=== PATIENT | female | born 1960 | race Caucasian/White ===

== ENCOUNTER 2019-01-28 13:00 | Outpatient (RCR) | payer OTHER, MEDICARE, SELFPAY ==
--- NOTE | 2019-01-13 13:29 | HP.PTEVAL ---
Patient's Visit Information MAURI FAITH is a 58 year old F referred to Physical Therapy by DESTINEY WING with a diagnosis of LUMBAR FUSION 10/20/18. Date of Evaluation: 01/13/19 Physical Therapist: Felicita Esparza PT, Cert MDT - Visit Plan Frequency: 2-3x /Week Duration: 4-6 Weeks Plan: AQUATIC THERAPY FOR PAIN RELEIF, POSTURE CORRECTION/STRENGTHENING, INSTRUCTION IN APPROPRIATE BODY MECHANICS AND ACTIVITY MODIFICATIONS. DLS STARTING WITH A NEUTRAL SPINE PROGRESSING ROM TOLERATED. EVELIO LE ROM, STRETCHING AND STRENGTHENING. HEP INSTRUCTION. - Subjective Findings: Work/Leisure: UNEMPLOYEED. Disability: YES - 10 YEARS AGO WHEN HAD FIRST BACK SURGERY. Present symptoms: LOW BACK PAIN. PATIENT DENIES EVELIO LE PAIN, NUMBNESS OR TINGLING CURRENTLY BUT HAD IT BEFORE THIS SURGERY. Present since: EARLY . Pain Scale: WORST 10/10, LEAST 3/10. Currently: 3/10. Commenced as a result of: REPETATIVE LABOR. Symptoms at onset: LOW BACK. Worse: PROLONGED SITTING, TRYING TO BEND, TOO MUCH BENDING, STANDING TOO LONG. Better: FREQUENT CHANGE OF POSITIONG, HEAT, ICE, PAIN PILLS. Disturbed sleep: NO. Previous history/Previous treatment: FIRST BACK SURGERY WAS IN 2009, SECOND BACK SURGERY WAS SEP 29 2018 AND THIRD WAS OCT 21 2018. PATIENT REPORTS THE TWO TOP SCREWS CAME OUT AFTER SURGERY SEP 29 THEREFORE EMERGENCY SURGERY Sep. ALL SURGERIES BY DR. DESTINEY WING. HISTORY OF CHIROPRACTOR A LONG TIME AGO. PHYSICAL THERAPY - AQUATIC THERAPY HERE AT [facility]. INJECTIONS BY DR. WING WITH MOST RECENT BEING IN ABOUT JUN 2018. Coughing/sneezing/straining: POSITIVE. Gait: PATIENT REPORTS THAT CURRENTLY HER WALKING IS A LOT BETTER THAN IT USE TO BE. SHE REPORTS IT IS SMOOTHER BUT DISTANCE AND PACE LIMITED. INCREASED PAIN WITH DOING A 1/2 MILE WALK ABOUT 2 WEEKS AGO. Difficulty initiating urinatin: NO. Accidents: NO. Unexplained weight loss: NO. Imaging: X-RAYS OF BACK ABOUT 2 WEEKS AGO - BURKE WAS PLEASED PER PATIENT REPORT. PMH: EVELIO THR'S. HAS HAD REVISION ON LEFT HIP 2016. LEFT SHOULDER SURGERY. HTN. 3RD STAGE RENAL FAILURE. OSTEOPOROSIS. 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 OTHER: PATIENT REPORTS SHE HAS BEEN A LITTLE MORE SORE LATELY SINCE TWO DAYS AGO WHEN SHE DIDN'T HAVE HER BACK BRACE ON AND SAT DOWN TOO FAST IN HER CAR. PATIENT ALSO REPORTS INCREASED PAIN TODAY FROM OVER-DOING IT AT HOME THIS MORNING, RUNNING SOME ERRANDS AND RUSHING AROUND. PATIENT ALSO REPORTS INCREASED BACK PAIN SINCE SHE WAS RELEASED TO START BENDING. - Objective Sitting/Standing Posture: POOR. Lordosis: REDUCED. Lateral shift: NO. Relevant shift: N/A. Active Correction of posture: BETTER. Other Observations: INDEP GAIT INTO PT WITH INCREASED TRUNK FLEXION AND DECREASED CADANCE. NO ASSISTIVE DEVICES OR LOB. Motor deficit: EVELIO HIPS 3+ TO 4-/5, EVELIO KNEES 4-/5, EVELIO ANKLES 5/5. Sensory deficit: EVELIO LE LIGHT TOUCH SENSATION APPEARS INTACT AND SYMMETRICAL. ROM deficit: TIGHT EVELIO HIP FLEXORS AND HAMSTRINGS. Reflexes: 2/3 EVELIO LE'S. Dural Signs: NEGATIVE EVELIO LE'S. Lumbar mvmt loss: flex - OLGA. ext - OLGA. R SG - OLGA. L SG - OLGA. THIS PT PROCEEDED VERY CAREFULLY WITH ALL TESTING. Core strength: POOR. Palpation: PATIENT IS TENDER WITH LIGHT PALPATION OF ENTIRE LUMBAR REGION. MILD TENDERNESS WITH PALPATION OF EVELIO GREATER TROCH REGIONS. NO BUTTOCK PAIN. EVELIO LUMBAR PARASPINALS ARE ALSO TENDER. SHE IS NOT TENDER IN THE THORACIC REGION. OTHER: INCISION LOOKS GOOD WITHOUT ANY OPEN AREAS OR SIGNS OF INFECTION. - Goals Goal 1:: DECREASE C/O LOW BACK AND EVELIO HIP PAIN. Goal Time Frame: 4-6 Weeks Goal 2:: IMPROVE LIFTING, WALKING, STANDING, TRAVEL AND HOMEMAKING FUNCTION Goal Time Frame: 4-6 Weeks Goal 3:: INSTRUCT IN PROPHYLAXIS Goal Time Frame: 4-6 Weeks - Rehabilitation Potential Rehabilitation Potential: Fair - Anticipated Interventions Patient/Client Instruction: Educate patient on: Condition, Plan of Care, Risk Factors, Benefits of Fitness Program For the Purpose of:: To improve self management Therapeutic Exercise to Include: Strength training, Body mechanics, Postural training, Flexibilty training, In an aquatic setting, Active ROM, Dynamic Lumbar Stabilization, Scapular Strength/Stabilization For the Purpose of:: To decrease pain, To decrease swelling/inflammation, To increase ROM, To improve muscle performance and motor function, To increase tolerance to activity/condition/position, To improve ability of physical actions for home/community/work/leisure, To improve gait and locomotor functions Thank you for the opportunity to evaluate your patient. For Medicare and Medicare HMO plans, please review the plan of care and approve it. It will need to be FAXED BACK to us at [phone] for Medicare purposes. For Medicare only, by signing this I certify the plan of care. Please let me know if there are questions or concerns regarding this plan of care. Physician Signature: Date:
--- NOTE | 2019-01-31 17:25 | HP.PT.NRP ---
HP - Discharge Summary (1) - Patient Information MAURI FAITH was seen in my office for initial evaluation on 01/13/19. The following Plan of Care was established for this patient: Initial Frequency: 2-3x /Week Initial Duration: 4-6 Weeks - Anticipated Interventions Patient/Client Instruction: Educate patient on: Condition, Plan of Care, Risk Factors, Benefits of Fitness Program For the Purpose of:: To improve self management Therapeutic Exercise to Include: Strength training, Body mechanics, Postural training, Flexibilty training, In an aquatic setting, Active ROM, Dynamic Lumbar Stabilization, Scapular Strength/Stabilization For the Purpose of:: To decrease pain, To decrease swelling/inflammation, To increase ROM, To improve muscle performance and motor function, To increase tolerance to activity/condition/position, To improve ability of physical actions for home/community/work/leisure, To improve gait and locomotor functions This patient was last seen in our office 01/28/19. Pertinent comments regarding their Physical therapy will appear below: PATIENT CALLED AND CANCELLED ALL CURRENT PT MIKAELA'TS DUE TO DISLOCATING HIP AT HOME CAUSING FALL AND FX'D WRIST. WE WOULD BE HAPPY TO RESUME PT WHEN APPROPRIATE. At this point I will be discontinuing this patient from physical therapy. I would be happy to see this patient again in the future if found appropriate by the physician. Thank you! Felicita Esparza, PT, Cert MDT
== END 2019-01-28 17:00 | disposition home or self-care (01) ==
LOC: PT 13:00
DX: M43.26 Fusion of spine, lumbar region (principal)
CPT/HCPCS: 97113; 97530

== ENCOUNTER 2019-10-04 08:30 | Outpatient (RCR) | payer OTHER, MEDICARE, SELFPAY ==
--- NOTE | 2019-06-06 11:58 | HP.PTEVAL_ITS ---
Patient's Visit Information MAURI FAITH is a 59 year old F referred to Physical Therapy by Schuyler Gifford MD with a diagnosis of L TKE s/p April 26, 2019. Date of Evaluation: 06/06/19 Physical Therapist: HOLLAND Vaughn - Visit Plan Frequency: 3x /Week Duration: 2 Months Plan: 3X/ week for 8 weeks for L knee AROM, stretching ( including foam rolling to the calf and the HS area), strengtheing, stairs, gait training, sit to stand transfers with HEP and modalities as needed. - Subjective Findings: L TKR on April 26. When she was in the hospital she kept telling them that her ankle was bothering her. She had a really bad sprained ankle and not sure how that happened. Her CPM machine was a week late getting to her. SHe was behind on therapy. Generally her whole L leg is swollen down the ankle. She walks the long driveway and does her exercises at home. She started driving but it is hard to get in the car because her L leg is hard to bend. SHe keeps her leg elevated. Her leg is so still in the morning. She reports that bending she is at 90 degrees and lacking 6 degrees. She has 1 step but has a ramp now. She has been using the straight cane for a little over 2 weeks now. She saw her surgeon a week ago and goes back to the surgeon on the . Her ankle is not broken. No blood clots. She has a lot of pain in her leg still. - Pain L knee pain Pain Intensity (Out of 10): 8 - Objective Gait: Walks with decrease stance time on the L leg and walks with a bent knee and decreased heel to toe gait pattern. L knee extension -11 degrees from full extension and 90 degrees flexion. Sit to stand: pt needs UE strength to stand up and likes to kick that L leg out instead of bringing it back. Pt is able to step up onto 6 inch step using B UE's with decrease ROM, increase hip hike. She is able to step down using // bars with increase use of UE to help take the pressure off bending the knee. Pt is able to SLR on the L but with extensor lag and increase weakness in the L hip. Nu-step L1 ( started at seat #9 for 3 min and then seat #8 for 2 min and then seat #7 for - Goals Goal 1:: I HEP Goal Time Frame: 4-6 Weeks Goal 2:: Increase L knee AROM -6 degrees from full extension to 110 degrees L knee flexion Goal Time Frame: 6-8 Weeks Goal 3:: Walk with normal gait pattern without AD Goal Time Frame: 6-8 Weeks Goal 4:: Be able to go up and down the stairs recip with 1 hand rail without antalgic gait Goal Time Frame: 6-8 Weeks Goal 5:: Be able to sit to stand with ease with L foot back and no UE support Goal Time Frame: 6-8 Weeks - Rehabilitation Potential Rehabilitation Potential: Good - Anticipated Interventions Patient/Client Instruction: Educate patient on: Plan of Care For the Purpose of:: To decrease pain, To decrease swelling/inflammation, To increase ROM, To improve nutrient delivery to tissue, To improve muscle performance and motor function, To improve ability to perform ADL's, To increase tolerance to activity/condition/position, To improve performance and independence with ADL's, To improve ability of physical actions for home/community/work/leisure, To improve gait and locomotor functions, To improve health of tissue, To decrease soft tissue restriction, To increase flexibility/ROM, To improve endurance, To improve balance, To improve safety with gait Therapeutic Exercise to Include: Strength training, Balance training, Flexibilty training, Gait and locomotor training, Passive ROM, Active ROM For the Purpose of:: To decrease pain, To decrease swelling/inflammation, To increase ROM, To improve nutrient delivery to tissue, To improve muscle performance and motor function, To improve ability to perform ADL's, To increase tolerance to activity/condition/position, To improve performance and independence with ADL's, To improve ability of physical actions for home/community/work/leisure, To improve gait and locomotor functions, To improve health of tissue, To decrease soft tissue restriction, To increase flexibility/ROM, To improve balance Functional Training to Include: Gait training For the Purpose of:: To improve gait and locomotor functions Manual Therapy Techniques to Include: Mobilization, Passive ROM, Soft tissue mobilization For the Purpose of:: To decrease pain, To increase ROM, To improve nutrient delivery to tissue, To improve muscle performance and motor function Cryotherapy (ice pack, ice massage): Yes Thermo therapy (hot pack): Yes For the Purpose of:: To decrease pain Thank you for the opportunity to evaluate your patient. For Medicare and Medicare HMO plans, please review the plan of care and approve it. It will need to be FAXED BACK to us at [phone] for Medicare purposes. For Medicare only, by signing this I certify the plan of care. Please let me know if there are questions or concerns regarding this plan of care. Physician Signature: Date:
--- NOTE | 2019-07-01 08:46 | HP.PTREVAL ---
Schuyler Gifford MD, It has been my pleasure to treat MAURI AFITH over the last 10 visits for L TKE s/p April 26, 2019. Please see the progress note below for an update on the physical therapy plan of care! Subjective: Pt reports that the Dr is giving her 4 more weeks and then manipulation. Objective/Function: L knee AROM: -9 degrees from full extension and 96 degrees knee flexion. Gait: still walks with a cane with decrease stance time on the L. Plan Plan: 3X/ week for 8 weeks for L knee AROM, stretching ( including foam rolling to the calf and the HS area), strengtheing, stairs, gait training, sit to stand transfers with HEP and modalities as needed. Goals Goal 1:: I HEP Goal Time Frame: 4-6 Weeks Goal Progress: Goal Met Goal 2:: Increase L knee AROM -6 degrees from full extension to 110 degrees L knee flexion Goal Time Frame: 6-8 Weeks Goal 3:: Walk with normal gait pattern without AD Goal Time Frame: 6-8 Weeks Goal Progress: Progressing Goal 4:: Be able to go up and down the stairs recip with 1 hand rail without antalgic gait Goal Time Frame: 6-8 Weeks Goal Progress: Progressing Goal 5:: Be able to sit to stand with ease with L foot back and no UE support Goal Time Frame: 6-8 Weeks Goal Progress: Progressing Anticipated Interventions Patient/Client Instruction: Educate patient on: Plan of Care For the Purpose of:: To decrease pain, To decrease swelling/inflammation, To increase ROM, To improve nutrient delivery to tissue, To improve muscle performance and motor function, To improve ability to perform ADL's, To increase tolerance to activity/condition/position, To improve performance and independence with ADL's, To improve ability of physical actions for home/community/work/leisure, To improve gait and locomotor functions, To improve health of tissue, To decrease soft tissue restriction, To increase flexibility/ROM, To improve endurance, To improve balance, To improve safety with gait Therapeutic Exercise to Include: Strength training, Balance training, Flexibilty training, Gait and locomotor training, Passive ROM, Active ROM For the Purpose of:: To decrease pain, To decrease swelling/inflammation, To increase ROM, To improve nutrient delivery to tissue, To improve muscle performance and motor function, To improve ability to perform ADL's, To increase tolerance to activity/condition/position, To improve performance and independence with ADL's, To improve ability of physical actions for home/community/work/leisure, To improve gait and locomotor functions, To improve health of tissue, To decrease soft tissue restriction, To increase flexibility/ROM, To improve balance Functional Training to Include: Gait training For the Purpose of:: To improve gait and locomotor functions Manual Therapy Techniques to Include: Mobilization, Passive ROM, Soft tissue mobilization For the Purpose of:: To decrease pain, To increase ROM, To improve nutrient delivery to tissue, To improve muscle performance and motor function Cryotherapy (ice pack, ice massage): Yes Thermo therapy (hot pack): Yes For the Purpose of:: To decrease pain Please do not hesitate to contact me at [phone] by phone or if you have questions or concerns regarding this new plan of care! Sincerely, Melany Damon, MPT
--- NOTE | 2019-07-27 13:05 | HP.PTREVAL ---
Schuyler Gifford MD, It has been my pleasure to treat MAURI FAITH over the last 17 visits for L TKE s/p April 26, 2019. Please see the progress note below for an update on the physical therapy plan of care! Subjective: Dr wants you to call him.... he wants to make sure that we are doing what we are supposed to do.... Pt reports that she was able to go around. Pt says she has been stretching her leg on a step and the squats and then around on her bike at home. Objective/Function: Pt tries hard in PT but ROM just seems to be stuck. Plan Plan: Await Dr phone call back. 3X/ week for 8 weeks for L knee AROM, stretching ( including foam rolling to the calf and the HS area), strengtheing, stairs, gait training, sit to stand transfers with HEP and modalities as needed. Goals Goal 1:: I HEP Goal Time Frame: 4-6 Weeks Goal Progress: Goal Met Goal 2:: Increase L knee AROM -6 degrees from full extension to 110 degrees L knee flexion Goal Time Frame: 6-8 Weeks Goal 3:: Walk with normal gait pattern without AD Goal Time Frame: 6-8 Weeks Goal Progress: Progressing Goal 4:: Be able to go up and down the stairs recip with 1 hand rail without antalgic gait Goal Time Frame: 6-8 Weeks Goal Progress: Progressing Goal 5:: Be able to sit to stand with ease with L foot back and no UE support Goal Time Frame: 6-8 Weeks Goal Progress: Progressing Anticipated Interventions Patient/Client Instruction: Educate patient on: Plan of Care For the Purpose of:: To decrease pain, To decrease swelling/inflammation, To increase ROM, To improve nutrient delivery to tissue, To improve muscle performance and motor function, To improve ability to perform ADL's, To increase tolerance to activity/condition/position, To improve performance and independence with ADL's, To improve ability of physical actions for home/community/work/leisure, To improve gait and locomotor functions, To improve health of tissue, To decrease soft tissue restriction, To increase flexibility/ROM, To improve endurance, To improve balance, To improve safety with gait Therapeutic Exercise to Include: Strength training, Balance training, Flexibilty training, Gait and locomotor training, Passive ROM, Active ROM For the Purpose of:: To decrease pain, To decrease swelling/inflammation, To increase ROM, To improve nutrient delivery to tissue, To improve muscle performance and motor function, To improve ability to perform ADL's, To increase tolerance to activity/condition/position, To improve performance and independence with ADL's, To improve ability of physical actions for home/community/work/leisure, To improve gait and locomotor functions, To improve health of tissue, To decrease soft tissue restriction, To increase flexibility/ROM, To improve balance Functional Training to Include: Gait training For the Purpose of:: To improve gait and locomotor functions Manual Therapy Techniques to Include: Mobilization, Passive ROM, Soft tissue mobilization For the Purpose of:: To decrease pain, To increase ROM, To improve nutrient delivery to tissue, To improve muscle performance and motor function Cryotherapy (ice pack, ice massage): Yes Thermo therapy (hot pack): Yes For the Purpose of:: To decrease pain Please do not hesitate to contact me at [phone] by phone or if you have questions or concerns regarding this new plan of care! Sincerely, Melany Damon, MPT
--- NOTE | 2019-09-27 10:16 | HP.PTREVAL_ITS ---
Schuyler Gifford MD, It has been my pleasure to treat MAURI FAITH over the last 31 visits for L TKE s/p April 26, 2019. Please see the progress note below for an update on the physical therapy plan of care! Subjective: Pt RTD tomm. She was tired by the end of the day on Thursday after walking around shopping for 7 hours. She feels that she has a bowling ball around her knee all the time. Pt is still having trouble getting in and out of her car (has to put her seat way back), she can't squat to get the dog bowls. and just trying to get her knee bent. Objective/Function: AROM L knee -4 degrees from full extension to 105 degrees L knee flexion. sit to stand: Able to do with much difficulty without using UE's. Stairs: up and down recip with 2 hand rails but much hesitancy descneding stairs due to decreased L knee AROM. Gait: walks with decrease stance time on the L LE Plan Plan: 1 additional visit to learn I H&W program with door frame assembler machine then DC to HEP. Goals Goal 1:: I HEP Goal Time Frame: 4-6 Weeks Goal Progress: Goal Met Goal 2:: Increase L knee AROM -6 degrees from full extension to 110 degrees L knee flexion Goal Time Frame: 6-8 Weeks Goal Progress: Progressing Goal 3:: Walk with normal gait pattern without AD Goal Time Frame: 6-8 Weeks Goal Progress: Progressing Goal 4:: Be able to go up and down the stairs recip with 1 hand rail without antalgic gait Goal Time Frame: 6-8 Weeks Goal Progress: Progressing Goal 5:: Be able to sit to stand with ease with L foot back and no UE support Goal Time Frame: 6-8 Weeks Goal Progress: Progressing Anticipated Interventions Patient/Client Instruction: Educate patient on: Plan of Care For the Purpose of:: To decrease pain, To decrease swelling/inflammation, To increase ROM, To improve nutrient delivery to tissue, To improve muscle performance and motor function, To improve ability to perform ADL's, To increase tolerance to activity/condition/position, To improve performance and independence with ADL's, To improve ability of physical actions for home/community/work/leisure, To improve gait and locomotor functions, To improve health of tissue, To decrease soft tissue restriction, To increase flexibility/ROM, To improve endurance, To improve balance, To improve safety with gait Therapeutic Exercise to Include: Strength training, Balance training, Flexibilty training, Gait and locomotor training, Passive ROM, Active ROM For the Purpose of:: To decrease pain, To decrease swelling/inflammation, To increase ROM, To improve nutrient delivery to tissue, To improve muscle performance and motor function, To improve ability to perform ADL's, To increase tolerance to activity/condition/position, To improve performance and independence with ADL's, To improve ability of physical actions for home /community/work/leisure, To improve gait and locomotor functions, To improve health of tissue, To decrease soft tissue restriction, To increase flexibility/ROM, To improve balance Functional Training to Include: Gait training For the Purpose of:: To improve gait and locomotor functions Manual Therapy Techniques to Include: Mobilization, Passive ROM, Soft tissue mobilization For the Purpose of:: To decrease pain, To increase ROM, To improve nutrient delivery to tissue, To improve muscle performance and motor function Cryotherapy (ice pack, ice massage): Yes Thermo therapy (hot pack): Yes For the Purpose of:: To decrease pain Please do not hesitate to contact me at [phone] by phone or if you have questions or concerns regarding this new plan of care! Sincerely, HOLLAND Vaughn
--- NOTE | 2019-10-04 09:29 | HP.PTDCSUM ---
HP - PT D/C Summary It has been my pleasure to treat MAURI FAITH under orders from Schuyler Gifford MD, for the diagnosis of L TKE s/p April 26, 2019 for a total of 32 visit(s). Discharge Date: 10/04/19 Please see the following information for a summary of their discharge status. - Subjective Subjective: Pt reports that her Dr wants to do a scope in April to clear up the scar tissue. She will do H&W until then. - Pain L knee pain Pain Intensity (Out of 10): 3 - Overall Improvement % Improvement: 50 - Objective Objective/Function: Pt has good understanding of H&W program.... Measurements taken from 09-27-19: AROM L knee -4 degrees from full extension to 105 degrees L knee flexion. sit to stand: Able to do with much difficulty without using UE's. Stairs: up and down recip with 2 hand rails but much hesitancy descneding stairs due to decreased L knee AROM. Gait: walks with decrease stance time on the L LE - Goals Goal 1:: I HEP Goal Progress: Goal Met Goal 2:: Increase L knee AROM -6 degrees from full extension to 110 degrees L knee flexion Goal Progress: Progressing Goal 3:: Walk with normal gait pattern without AD Goal Progress: Progressing Goal 4:: Be able to go up and down the stairs recip with 1 hand rail without antalgic gait Goal Progress: Progressing Goal 5:: Be able to sit to stand with ease with L foot back and no UE support Goal Progress: Progressing - Plan Plan: DC PT to H&W program - D/C Information Discharge Comments: DC PT to H&W If there are questions or concerns regarding this patient's physical therapy, please feel free to call me at [phone]. Thank you for the referral of this patient. Sincerely, Melany Damon, MPT
== END 2019-10-04 15:10 | disposition home or self-care (01) ==
LOC: PT 08:30
PROVIDERS: Referring Provider Orthopaedic Surgery; Visit Provider Orthopaedic Surgery
DX: Z47.1 Aftercare following joint replacement surgery (principal)
CPT/HCPCS: 97110; 97113; 97140; 97161

== ENCOUNTER → 2020-05-28 | Outpatient (CLI) | payer OTHER, MEDICARE, SELFPAY | END | disposition home or self-care (01) | LOC: MTDU 18:10 | DX: R11.0 Nausea (principal); R53.83 Other fatigue | CPT/HCPCS: 87635; G2023; U0003 ==

== ENCOUNTER → 2023-05-06 | Outpatient (CLI) | payer MEDICARE, SELFPAY ==
[2023-05-06 11:30] LABS: EXAGEN MAILED SPECIMEN
[2023-05-06 12:27] LABS: Absolute Lymphocyte Count 1.34 X10^3/uL (0.83-4.51); Absolute Neutrophil Count 3.8 X10^3/uL (2.0-7.7); Basophil# 0.03 X10^3/uL; Basophil% 0.5 % (0-1); Eosinophil# 0.05 X10^3/uL; Eosinophils% 0.9 % (0-5); Hematocrit 47.5 % (37-47); Hemoglobin 15.6 g/dL (12.0-15.0); Lymphocyte # 1.34 X10^3/ul (0.83-4.51); Mean Corp Hgb Conc 32.8 g/dL (32-36); Mean Corpuscular Hgb 32.5 pg (27.0-32.0); Mean Platelet Vol. 11.2 fl (6.2-12.0); Monocyte# 0.36 X10^3/uL; Monocyte% 6.5 % (0-10); NRBC Flagged by Analyzer 0 % (0-5); Neutrophil # 3.78 X10^3/uL (2.7-7.7); Neutrophil % 67.7 % (47-70); Platelet Count 245 K/mm3 (150-450); RBC Distribution Width CV 13.6 % (11.6-14.6); RBC Distribution Width SD 49.8 fl (35.1-43.9); White Blood Count 5.6 K/mm3 (4.4-11.0)
[2023-05-06 12:35] LABS: Color, Urine Yellow (Yellow); Glucose, Dipstick Normal (Normal); Ketone-Dipstick Negative (Negative); Leukocyte Esterase-Dipstick 100 /ul (Negative); Nitrite-Dipstick Negative (Negative); Occult Blood-Urine Negative /ul (Negative); Protein-Dipstick Negative (Negative); Urine Bilirubin Dipstick Negative (Negative); Urine Clarity Sl. Cloudy (Clear); Urine Urobilinogen Normal (Normal)
[2023-05-06 12:45] LABS: Protein, Urine (Random) 18.3 mg/dL (<11.9); Protein:Creat Ratio 163 mg/g CRE (0-200)
[2023-05-06 13:13] LABS: ALB/GLOB Ratio 0.9 RATIO (0.9-2.4); AST(SGOT) 19 U/L (15-37); Alanine Aminotransfer ALT/SGPT 19 U/L (13-56); Albumin, Serum 3.5 g/dL (3.2-5.0); Alkaline Phosphatase 83 U/L (45-117); Anion Gap 8 (5-15); BUN 16 mg/dL (7-18); Calcium,Total 9.5 mg/dL (8.5-10.1); Chloride 105 mmol/L (98-107); EST Glomerular Filtration Rate 60 mL/min (>60); Est Glom Filt Rate - Afr Amer 72 mL/min (>60); Glucose 94 mg/dL (74-106); Potassium 4.1 mmol/L (3.5-5.1); Protein, Total 7.5 g/dL (6.4-8.2); Sodium Level 138 mmol/L (136-145)
[2023-05-06 13:31] LABS: Hepatitis B Surface Antibody Non-Reactive; Hepatitis B Surface Antigen Non-Reactive (Nonreactive); Hepatitis C Antibody Non-Reactive (Nonreactive)
== END | disposition home or self-care (01) ==
PROVIDERS: PCP Family Medicine; Referring Provider Internal Medicine Rheumatology; Visit Provider Internal Medicine Rheumatology
DX: R76.8 Other specified abnormal immunological findings in serum (principal); M06.4 Inflammatory polyarthropathy; I10 Essential (primary) hypertension; Z87.448 Personal history of other diseases of urinary system
CPT/HCPCS: 36415; 80053; 81002; 82570; 84156; 85025; 86140; 86706; 86803; 87340

== ENCOUNTER → 2023-07-08 | Outpatient (CLI) | payer MEDICARE, SELFPAY ==
[2023-07-08] MEDS: Zolpidem Tartrate 5 MG Tablet PO (21:50)
== END | disposition home or self-care (01) ==
LOC: SL 20:00
PROVIDERS: Referring Provider Nurse Practitioner Acute Care; Visit Provider Nurse Practitioner Acute Care
DX: G47.33 Obstructive sleep apnea (adult) (pediatric) (principal)
CPT/HCPCS: 95811

== ENCOUNTER → 2023-07-20 | Outpatient (CLI) | payer MEDICARE, SELFPAY ==
[2023-07-20 10:08] LABS: Absolute Lymphocyte Count 1.68 X10^3/uL (0.83-4.51); Absolute Neutrophil Count 2.6 X10^3/uL (2.0-7.7); Basophil# 0.07 X10^3/uL; Basophil% 1.4 % (0-1); Eosinophil# 0.08 X10^3/uL; Eosinophils% 1.7 % (0-5); Hematocrit 44.5 % (37-47); Hemoglobin 14.5 g/dL (12.0-15.0); Lymphocyte # 1.68 X10^3/ul (0.83-4.51); Lymphocyte % 34.8 % (19-41); Mean Corp Hgb Conc 32.6 g/dL (32-36); Mean Corpuscular Volume 95.3 fL (81-99); Mean Platelet Vol. 11.6 fl (6.2-12.0); Monocyte# 0.37 X10^3/uL; Monocyte% 7.7 % (0-10); NRBC Flagged by Analyzer 0 % (0-5); Neutrophil # 2.62 X10^3/uL (2.7-7.7); Neutrophil % 54.2 % (47-70); Platelet Count 210 K/mm3 (150-450); RBC Distribution Width CV 13.2 % (11.6-14.6); RBC Distribution Width SD 46.5 fl (35.1-43.9); Red Blood Count 4.67 M/mm3 (4.2-5.4); White Blood Count 4.8 K/mm3 (4.4-11.0)
[2023-07-20 10:52] LABS: AST(SGOT) 20 U/L (15-37); Alanine Aminotransfer ALT/SGPT 18 U/L (13-56); Albumin, Serum 3.5 g/dL (3.2-5.0); Alkaline Phosphatase 61 U/L (45-117); Anion Gap 6 (5-15); BUN 16 mg/dL (7-18); Calcium,Total 9.2 mg/dL (8.5-10.1); Chloride 108 mmol/L (98-107); EST Glomerular Filtration Rate 60 mL/min (>60); Est Glom Filt Rate - Afr Amer 72 mL/min (>60); Globulin 3.5 g/dL (2.2-4.2); Glucose 88 mg/dL (74-106); Sodium Level 142 mmol/L (136-145)
== END | disposition home or self-care (01) ==
LOC: MTLAB 08:34
PROVIDERS: PCP Family Medicine; Referring Provider Internal Medicine Rheumatology; Visit Provider Internal Medicine Rheumatology
DX: M06.4 Inflammatory polyarthropathy (principal); M32.9 Systemic lupus erythematosus, unspecified; Z79.899 Other long term (current) drug therapy
CPT/HCPCS: 36415; 80053; 85025

== ENCOUNTER → 2023-07-28 | Outpatient (CLI) | payer MEDICARE, SELFPAY | END | disposition home or self-care (01) | LOC: SL 10:37 | PROVIDERS: PCP Family Medicine; Visit Provider Nurse Practitioner Acute Care | DX: G47.33 Obstructive sleep apnea (adult) (pediatric) (principal) ==

== ENCOUNTER → 2023-10-20 | Outpatient (CLI) | payer MEDICARE, SELFPAY ==
[2023-10-20 10:02] LABS: Absolute Lymphocyte Count 1.76 X10^3/uL (0.83-4.51); Absolute Neutrophil Count 3.1 X10^3/uL (2.0-7.7); Basophil# 0.07 X10^3/uL; Basophil% 1.3 % (0-1); Eosinophil# 0.07 X10^3/uL; Eosinophils% 1.3 % (0-5); Hematocrit 48.4 % (37-47); Hemoglobin 15.5 g/dL (12.0-15.0); Lymphocyte # 1.76 X10^3/ul (0.83-4.51); Lymphocyte % 32.1 % (19-41); Mean Corpuscular Hgb 31.4 pg (27.0-32.0); Mean Platelet Vol. 11.2 fl (6.2-12.0); Monocyte# 0.45 X10^3/uL; Monocyte% 8.2 % (0-10); NRBC Flagged by Analyzer 0 % (0-5); Neutrophil # 3.12 X10^3/uL (2.7-7.7); Neutrophil % 56.7 % (47-70); POSITIVE MORPHOLOGY YES; Platelet Count 254 K/mm3 (150-450); RBC Distribution Width CV 13.5 % (11.6-14.6); RBC Distribution Width SD 48.4 fl (35.1-43.9); Red Blood Count 4.94 M/mm3 (4.2-5.4); White Blood Count 5.5 K/mm3 (4.4-11.0)
[2023-10-20 10:16] LABS: Differential Indicated SCAN CRITERIA MET
[2023-10-20 11:12] LABS: ALB/GLOB Ratio 0.9 RATIO (0.9-2.4); AST(SGOT) 21 U/L (15-37); Alanine Aminotransfer ALT/SGPT 22 U/L (13-56); Albumin, Serum 3.5 g/dL (3.2-5.0); Alkaline Phosphatase 80 U/L (45-117); Anion Gap 5 (5-15); BUN 15 mg/dL (7-18); BUN/Creat Ratio 12.2 RATIO (10-20); Calcium,Total 9.4 mg/dL (8.5-10.1); Chloride 103 mmol/L (98-107); Creatinine, Serum 1.23 mg/dL (0.55-1.02); EST Glomerular Filtration Rate 47 mL/min (>60); Est Glom Filt Rate - Afr Amer 57 mL/min (>60); Glucose 99 mg/dL (74-106); Potassium 4.1 mmol/L (3.5-5.1); Protein, Total 7.5 g/dL (6.4-8.2); Sodium Level 135 mmol/L (136-145)
[2023-10-20 11:54] LABS: Differential Comment SCANNED; Reactive Lymphocyte 1+
== END | disposition home or self-care (01) ==
LOC: MTLAB 08:38
PROVIDERS: PCP Family Medicine; Referring Provider Internal Medicine Rheumatology; Visit Provider Internal Medicine Rheumatology
DX: M06.4 Inflammatory polyarthropathy (principal); M32.9 Systemic lupus erythematosus, unspecified; I10 Essential (primary) hypertension; Z87.448 Personal history of other diseases of urinary system; Z79.899 Other long term (current) drug therapy
CPT/HCPCS: 36415; 80053; 85025

== ENCOUNTER → 2024-03-24 | Outpatient (CLI) | payer MEDICARE, SELFPAY ==
[2024-03-24 10:43] LABS: Absolute Lymphocyte Count 1.44 X10^3/uL (0.83-4.51); Absolute Neutrophil Count 2.5 X10^3/uL (2.0-7.7); Basophil# 0.04 X10^3/uL; Basophil% 0.9 % (0-1); Eosinophil# 0.07 X10^3/uL; Eosinophils% 1.6 % (0-5); Hematocrit 43.4 % (37-47); Hemoglobin 13.9 g/dL (12.0-15.0); Lymphocyte # 1.44 X10^3/ul (0.83-4.51); Lymphocyte % 32.4 % (19-41); Mean Corpuscular Hgb 30.6 pg (27.0-32.0); Mean Corpuscular Volume 95.6 fL (81-99); Mean Platelet Vol. 11.7 fl (6.2-12.0); Monocyte# 0.39 X10^3/uL; Monocyte% 8.8 % (0-10); NRBC Flagged by Analyzer 0 % (0-5); Neutrophil # 2.48 X10^3/uL (2.7-7.7); Neutrophil % 55.8 % (47-70); Platelet Count 224 K/mm3 (150-450); RBC Distribution Width CV 13.3 % (11.6-14.6); RBC Distribution Width SD 46.6 fl (35.1-43.9); Red Blood Count 4.54 M/mm3 (4.2-5.4); White Blood Count 4.4 K/mm3 (4.4-11.0)
[2024-03-24 10:48] LABS: ALB/GLOB Ratio 0.9 RATIO (0.9-2.4); AST(SGOT) 17 U/L (15-37); Alanine Aminotransfer ALT/SGPT 16 U/L (13-56); Albumin, Serum 3.4 g/dL (3.2-5.0); Alkaline Phosphatase 53 U/L (45-117); Anion Gap 5 (5-15); BUN 18 mg/dL (7-18); BUN/Creat Ratio 20.9 RATIO (10-20); Calcium,Total 9.2 mg/dL (8.5-10.1); Chloride 106 mmol/L (98-107); Creatinine, Serum 0.86 mg/dL (0.55-1.02); EST Glomerular Filtration Rate 70 mL/min (>60); Est Glom Filt Rate - Afr Amer 85 mL/min (>60); Globulin 3.6 g/dL (2.2-4.2); Glucose 81 mg/dL (74-106); Potassium 4.2 mmol/L (3.5-5.1); Sodium Level 141 mmol/L (136-145)
== END | disposition home or self-care (01) ==
LOC: MTLAB 08:55
PROVIDERS: PCP Family Medicine; Referring Provider Internal Medicine Rheumatology; Visit Provider Internal Medicine Rheumatology
DX: M06.4 Inflammatory polyarthropathy (principal); Z79.899 Other long term (current) drug therapy
CPT/HCPCS: 36415; 80053; 85025

== ENCOUNTER → 2024-10-05 | Outpatient (CLI) | payer MEDICARE, SELFPAY ==
[2024-10-05 12:18] LABS: Absolute Lymphocyte Count 1.62 X10^3/uL (0.83-4.51); Absolute Neutrophil Count 3.3 X10^3/uL (2.0-7.7); Basophil# 0.04 X10^3/uL; Basophil% 0.8 % (0-1); Eosinophils% 1.9 % (0-5); Hematocrit 40.8 % (37-47); Hemoglobin 12.7 g/dL (12.0-15.0); Lymphocyte # 1.62 X10^3/ul (0.83-4.51); Lymphocyte % 30.5 % (19-41); Mean Corp Hgb Conc 31.1 g/dL (32-36); Mean Corpuscular Hgb 30.2 pg (27.0-32.0); Mean Corpuscular Volume 97.1 fL (81-99); Mean Platelet Vol. 11.9 fl (6.2-12.0); Monocyte# 0.27 X10^3/uL; Monocyte% 5.1 % (0-10); NRBC Flagged by Analyzer 0 % (0-5); Neutrophil # 3.27 X10^3/uL (2.7-7.7); Neutrophil % 61.5 % (47-70); Platelet Count 243 K/mm3 (150-450); RBC Distribution Width CV 13.1 % (11.6-14.6); RBC Distribution Width SD 47.1 fl (35.1-43.9); White Blood Count 5.3 K/mm3 (4.4-11.0)
[2024-10-05 12:44] LABS: AST(SGOT) 19 U/L (15-37); Alanine Aminotransfer ALT/SGPT 17 U/L (13-56); Albumin, Serum 3.4 g/dL (3.2-5.0); Alkaline Phosphatase 63 U/L (45-117); Anion Gap 6 (5-15); BUN 14 mg/dL (7-18); BUN/Creat Ratio 18.5 RATIO (10-20); Calcium,Total 9.4 mg/dL (8.5-10.1); Chloride 106 mmol/L (98-107); Creatinine, Serum 0.76 mg/dL (0.55-1.02); EST Glomerular Filtration Rate 82 mL/min (>60); Est Glom Filt Rate - Afr Amer 99 mL/min (>60); Globulin 3.3 g/dL (2.2-4.2); Glucose 92 mg/dL (74-106); Potassium 3.4 mmol/L (3.5-5.1); Protein, Total 6.7 g/dL (6.4-8.2); Sodium Level 139 mmol/L (136-145)
== END | disposition home or self-care (01) ==
LOC: MTLAB 09:51
PROVIDERS: PCP Family Medicine; Referring Provider Internal Medicine Rheumatology; Visit Provider Internal Medicine Rheumatology
DX: M06.4 Inflammatory polyarthropathy (principal); M32.9 Systemic lupus erythematosus, unspecified; Z79.899 Other long term (current) drug therapy
CPT/HCPCS: 36415; 80053; 85025

== ENCOUNTER → 2025-09-04 | Outpatient (CLI) | payer MEDICARE, SELFPAY ==
[2025-09-04 12:30] LABS: Hematocrit 46.4 % (37-47); Hemoglobin 15.1 g/dL (12.0-15.0); Immature Granulocytes Count 0.010 X10^3/uL (0.0-0.0); Mean Corp Hgb Conc 32.5 g/dL (32-36); Mean Corpuscular Volume 94.7 fL (81-99); Mean Platelet Vol. 11.1 fl (6.2-12.0); NRBC Flagged by Analyzer 0 % (0-5); Platelet Count 230 K/mm3 (150-450); RBC Distribution Width CV 13.8 % (11.6-14.6); RBC Distribution Width SD 48.1 fl (35.1-43.9); Red Blood Count 4.90 M/mm3 (4.2-5.4); White Blood Count 6.7 K/mm3 (4.4-11.0)
[2025-09-04 12:44] LABS: Glucose, Dipstick Normal (Normal); Ketone-Dipstick Negative (Negative); Leukocyte Esterase-Dipstick Negative /ul (Negative); Nitrite-Dipstick Negative (Negative); Occult Blood-Urine Negative /ul (Negative); Protein-Dipstick 30 mg/dl (Negative); Specific Gravity, Urine 1.025 (1.002-1.030); Urine Bilirubin Dipstick Negative (Negative)
[2025-09-04 12:48] LABS: Color, Urine Yellow (Yellow)
[2025-09-04 13:06] LABS: Creatinine, Urine (random) 158.00 mg/dL (28.00-217.00); Protein, Urine (Random) 20.7 mg/dL (0.0-12.0); Protein:Creat Ratio 131 mg/g CRE (0-200)
[2025-09-04 13:42] LABS: AST(SGOT) 23 U/L (<=31); Alanine Aminotransfer ALT/SGPT 9 U/L (<=34); Albumin, Serum 4.4 g/dL (3.4-4.8); Alkaline Phosphatase 66 U/L (35-104); Anion Gap 13 (5-15); BUN 15 mg/dL (4-19); BUN/Creat Ratio 16.3 RATIO (10-20); Calcium,Total 9.6 mg/dL (7.6-11.0); Carbon Dioxide 24.5 mmol/L (21.0-32.0); Chloride 104 mmol/L (98-108); Globulin 2.5 g/dL (2.2-4.2); Glucose 93 mg/dL (70-99); Potassium 4.3 mmol/L (3.3-5.1)
[2025-09-05 13:08] LABS: Anti-dsDNA Ab 10 IU/mL (0-9)
== END | disposition home or self-care (01) ==
LOC: MTLAB 10:07
PROVIDERS: PCP Family Medicine; Referring Provider Internal Medicine Rheumatology; Visit Provider Internal Medicine Rheumatology
DX: M06.4 Inflammatory polyarthropathy (principal); M32.9 Systemic lupus erythematosus, unspecified; Z79.899 Other long term (current) drug therapy
CPT/HCPCS: 36415; 80053; 81002; 82570; 84156; 85025; 86160; 86225